=== PATIENT | female | born 1980 | race Two or more races ===

== ENCOUNTER 2018-01-04 12:49 | Emergency (ER) | payer MEDICAID ==
[~2018-01-04] VITALS: Ht 167.6 cm; Wt 70.0 kg
[2018-01-04 15:36] VITALS: BP 136/69
== END 2018-01-04 15:45 | disposition home or self-care (01) ==
LOC: ER 12:52
DX: R25.2 Cramp and spasm (principal); M79.604 Pain in right leg
CPT/HCPCS: 93971; 99284

== ENCOUNTER 2018-02-28 15:10 | Emergency (ER) | payer MEDICAID ==
[~2018-02-28] VITALS: Ht 167.6 cm; Wt 74.5 kg
[~2018-02-28 15:10] MED LIST: IBUP-1984 PO
[2018-02-28 16:02] LABS: CLARITY,URINE SLIGHTLY CLOUDY (Clear); COLOR,URINE YELLOW (Yellow); GLUCOSE, URINE NEGATIVE (Neg); KETONES,URINE NEGATIVE (Neg); LEUKOCYTE ESTERASE ,URINE NEGATIVE (Neg); NITRITES, URINE NEGATIVE (Neg); OCCULT BLOOD,URINE SMALL (Neg); PROTEIN,URINE NEGATIVE (Neg)
[2018-02-28 16:03] LABS: URINE HCG NEGATIVE (NEG)
[2018-02-28 16:15] LABS: UA COLLECTION TYPE CLN CATCH MIDSTREAM
[2018-02-28 16:22] LABS: BACTERIA,URINE 1+ /HPF (Neg); HYALINE CASTS 0-3 /LPF (NEGATIVE); RBC,URINE NONE SEEN /HPF (0-2); SQUAMOUS EPITHELIAL CELL,UR MODERATE /LPF (FEW); WBC,URINE 0-4 /HPF (0-4)
[2018-02-28 16:56] LABS: BASOPHILS % (AUTO) 0.5 % (0-1); EOSINOPHILS # (AUTO) 0.1 X10'3 (0-0.9); EOSINOPHILS % (AUTO) 1.1 % (0-6); LYMPHOCYTES # (AUTO) 1.4 X10'3 (1.1-4.8); LYMPHOCYTES % (AUTO) 16.1 % (21-51); MEAN CORPUSCULAR HEMOGLOBIN 27.8 PG (27.0-31.0); MEAN CORPUSCULAR HGB CONC 33.3 % (33.0-36.5); MEAN CORPUSCULAR VOLUME 83.7 FL (78-98); MEAN PLATELET VOLUME 8.6 FL (7.4-10.4); MONOCYTES # (AUTO) 0.6 X10'3 (0-0.9); MONOCYTES % (AUTO) 6.8 % (2-12); NEUTROPHILS # (AUTO) 6.6 X10'3 (1.8-7.7); NEUTROPHILS % (AUTO) 75.5 % (42-75); PLATELET COUNT 348 X10'3 (140-440); RED BLOOD COUNT 4.66 X10'6 (4.20-5.60); RED CELL DISTRIBUTION WIDTH 12.8 % (11.5-14.5); WHITE BLOOD COUNT 8.7 X10'3 (4.5-11.0)
[2018-02-28 17:08] LABS: ALANINE AMINOTRANSFERASE 87 U/L (12-78); ALBUMIN 3.8 G/DL (3.4-5.0); ALKALINE PHOSPHATASE 140 IU/L (46-116); AMYLASE 71 U/L (25-115); ANION GAP 10 (8-16); ASPARTATE AMINO TRANSFERASE 54 U/L (10-37); BILIRUBIN,TOTAL 0.5 MG/DL (0.1-1.0); BLOOD UREA NITROGEN 9 MG/DL (7-18); BUN/CREATININE RATIO 14.3 (6.6-38.0); CALCIUM 9.1 MG/DL (8.5-10.1); CHLORIDE 103 MMOL/L (99-107); CREATININE 0.63 MG/DL (0.40-0.90); GLUCOSE 86 MG/DL (70-104); LIPASE 86 U/L (73-393); POTASSIUM 3.3 MMOL/L (3.5-5.1); SODIUM 141 MMOL/L (135-145); TOTAL CARBON DIOXIDE 28.3 MMOL/L (24-32); TOTAL PROTEIN 7.5 G/DL (6.4-8.2); eGFR > 90 ML/MIN
[2018-02-28 17:11] LABS: PROTHROMBIN TIME 10.1 SECONDS (9.0-12.0)
[2018-02-28] MEDS ORDERED: HYDROcodone/acetaminophen 5mg/325mg tablet PO ONE (18:30)
[2018-02-28] MEDS ORDERED: POLY17PO10 PO (18:32)
[2018-02-28] MEDS ORDERED: DOCU-169 PO (18:32)
[2018-02-28 19:16] VITALS: BP 119/68
== END 2018-02-28 19:18 | disposition home or self-care (01) ==
LOC: ER 15:11
DX: K59.00 Constipation, unspecified (principal); Z79.899 Other long term (current) drug therapy
CPT/HCPCS: 36415; 76700; 80053; 81001; 81025; 82150; 83690; 85025; 85610; 99284

== ENCOUNTER 2018-03-19 00:11 | Emergency (ER) | payer MEDICAID ==
[~2018-03-19] VITALS: Ht 167.6 cm; Wt 66.2 kg
[~2018-03-19 00:11] MED LIST changes: +DOCU-169 PO; +POLY17PO10 PO
[2018-03-19 00:16] VITALS: BP 129/79
[2018-03-19] MEDS ORDERED: PRED20TA PO (00:44)
[2018-03-19] MEDS ORDERED: predniSONE 20 mg tablet PO ONE (00:45)
== END 2018-03-19 00:59 | disposition home or self-care (01) ==
LOC: ER 00:13
DX: L50.9 Urticaria, unspecified (principal); T78.40XA Allergy, unspecified, initial encounter; Z79.899 Other long term (current) drug therapy; X58.XXXA Exposure to other specified factors, initial encounter; Y93.89 Activity, other specified; Y92.89 Other specified places as the place of occurrence of the external cause; Y99.8 Other external cause status
CPT/HCPCS: 99283; J7512

== ENCOUNTER 2018-12-15 13:21 | Observation (INO) | payer MEDICAID ==
[~2018-12-15] VITALS: Ht 167.6 cm; Wt 71.0 kg
[~2018-12-15 13:21] MED LIST changes: -IBUP-1984 PO; -POLY17PO10 PO
[2018-12-15 15:24] LABS: BASOPHILS % (AUTO) 0.6 % (0-1); EOSINOPHILS # (AUTO) 0.2 X10'3 (0-0.9); EOSINOPHILS % (AUTO) 2.4 % (0-6); HEMATOCRIT 37.1 % (35.0-45.0); HEMOGLOBIN 12.4 g/dl (12.0-16.0); LYMPHOCYTES # (AUTO) 1.9 X10'3 (1.1-4.8); MEAN CORPUSCULAR HEMOGLOBIN 27.9 PG (27.0-31.0); MEAN CORPUSCULAR HGB CONC 33.3 g/dL (33.0-36.5); MEAN CORPUSCULAR VOLUME 83.7 FL (78-98); MEAN PLATELET VOLUME 8.1 FL (7.4-10.4); MONOCYTES # (AUTO) 0.7 X10'3 (0-0.9); MONOCYTES % (AUTO) 8.8 % (2-12); NEUTROPHILS # (AUTO) 5.6 X10'3 (1.8-7.7); NEUTROPHILS % (AUTO) 66.2 % (42-75); PLATELET COUNT 280 X10'3 (140-440); RED BLOOD COUNT 4.43 X10'6 (4.20-5.60); RED CELL DISTRIBUTION WIDTH 13.2 % (11.5-14.5); WHITE BLOOD COUNT 8.5 X10'3 (4.5-11.0)
--- NOTE | 2018-12-15 15:30 | NUR ---
Pt reports no CP or pressure right now.
[2018-12-15 15:32] LABS: PARTIAL THROMBOPLASTIN TIME 26 SECONDS (22-32)
[2018-12-15 15:35] LABS: ALANINE AMINOTRANSFERASE 49 U/L (12-78); ALBUMIN 3.9 G/DL (3.4-5.0); ALBUMIN/GLOBULIN RATIO 1.1 (1.1-1.5); ALKALINE PHOSPHATASE 117 IU/L (46-116); ANION GAP 9 (8-16); ASPARTATE AMINO TRANSFERASE 25 U/L (10-37); BILIRUBIN,TOTAL 0.3 MG/DL (0.1-1.0); BLOOD UREA NITROGEN 8 MG/DL (7-18); BUN/CREATININE RATIO 12.1 (6.6-38.0); CALCIUM 9.6 MG/DL (8.5-10.1); CHLORIDE 105 MMOL/L (99-107); CREATININE 0.66 MG/DL (0.40-0.90); GLUCOSE 105 MG/DL (70-104); POTASSIUM 3.6 MMOL/L (3.5-5.1); SODIUM 142 MMOL/L (135-145); TOTAL CARBON DIOXIDE 27.6 MMOL/L (24-32); TOTAL PROTEIN 7.5 G/DL (6.4-8.2); eGFR > 90 ML/MIN
[2018-12-15] MEDS ORDERED: aspirin 325mg tablet PO ONE (16:25)
[2018-12-15] MEDS ORDERED: NO HOME MEDS (16:38)
--- NOTE | 2018-12-15 16:47 | NUR ---
Hospitalist at bedside.
[2018-12-15] MEDS ORDERED: docusate sod 100mg capsule PO PRN (17:10)
[2018-12-15] MEDS ORDERED: potassium CL 10mEq/100ml bag 100 ML IV PRN ×2 (17:10)
[2018-12-15] MEDS ORDERED: potassium Cl 20 mEq SR tablet PO PRN ×2 (17:10)
[2018-12-15] MEDS ORDERED: HYDROcodone/acetaminophen 5mg/325mg tablet PO PRN (17:10)
[2018-12-15] MEDS ORDERED: magnesium 2GM in 50ml NS 50 ML IV PRN (17:10)
[2018-12-15] MEDS ORDERED: ondansetron/PF 4mg/2ml inj IV PRN (17:10)
[2018-12-15] MEDS ORDERED: acetaminophen 325mg tablet PO PRN ×2 (17:10)
[2018-12-15] MEDS ORDERED: magnesium Cl slow-release 64mg tablet PO PRN (17:10)
[2018-12-15] MEDS ORDERED: magnesium 4gm in 100ml NS 100 ML IV PRN (17:10)
[2018-12-15 17:48] LABS: D-DIMER 0.41 MG/L FEU (0-0.50)
[2018-12-15 18:17] LABS: HCG SERUM QL NEGATIVE
--- NOTE | 2018-12-15 18:54 | NUR ---
Patient in room . I have received report from CELY Kuhn RN and had the opportunity to ask questions and assume patient care.
[2018-12-15 19:35] VITALS: BP 131/86
[2018-12-15] MEDS: normal saline 1000ml 1,000 ML IV SCH (19:39)
[2018-12-15 19:59] LABS: CLARITY,URINE SLIGHTLY CLOUDY (Clear); COLOR,URINE YELLOW (Yellow); GLUCOSE, URINE NEGATIVE (Neg); KETONES,URINE >=80 mg/dl (Neg); LEUKOCYTE ESTERASE ,URINE TRACE (Neg); NITRITES, URINE NEGATIVE (Neg); OCCULT BLOOD,URINE SMALL (Neg); PH,URINE 5.5 (4.8-8.0); PROTEIN,URINE NEGATIVE (Neg); UROBILINOGEN,URINE 0.2 E.U/dL (0.2-1.0)
[2018-12-15 20:00] VITALS: BP_SYST 121; BP_SYST 131; BP_SYST 140; BP_DIAS 60; BP_DIAS 79; BP_DIAS 87
[2018-12-15 20:02] LABS: UA COLLECTION TYPE CLN CATCH MIDSTREAM
[2018-12-15 20:17] LABS: RBC,URINE 0-2 /HPF (0-2)
[2018-12-15 20:18] LABS: BACTERIA,URINE 2+ /HPF (Neg); MUCUS STRANDS MODERATE /LPF (Neg); SQUAMOUS EPITHELIAL CELL,UR MANY /LPF (FEW)
[2018-12-15] MEDS: heparin, porcine 5000 units/ml vial SQ SCH (21:02)
--- NOTE | 2018-12-15 21:22 | NUR ---
pt arrived on the floor at 1935, not in acute distress and denies any discomfort. A/O x4, VS stable and was given sandwich for laurenner Addendum: 12/15/18 at 2123 by Keysha Weston RN Amended: Links added.
[2018-12-16] VITALS: BP 110/61
[2018-12-16] MEDS: normal saline 1000ml 1,000 ML IV SCH ×4 (03:06→07:12)
[2018-12-16 06:00] LABS: ALBUMIN 3.3 G/DL (3.4-5.0); ANION GAP 11 (8-16); BLOOD UREA NITROGEN 8 MG/DL (7-18); BUN/CREATININE RATIO 14.3 (6.6-38.0); CALCIUM 9.3 MG/DL (8.5-10.1); CHLORIDE 109 MMOL/L (99-107); CREATININE 0.56 MG/DL (0.40-0.90); GLUCOSE 94 MG/DL (70-104); POTASSIUM 3.5 MMOL/L (3.5-5.1); SODIUM 143 MMOL/L (135-145); eGFR > 90 ML/MIN
--- NOTE | 2018-12-16 06:25 | NUR ---
Patient in room MP 354. I have received report from Isela Garcia RN and had the opportunity to ask questions and assume patient care.
[2018-12-16 06:30] VITALS: BP 117/64
--- NOTE | 2018-12-16 06:48 | NUR ---
Problems reprioritized. Patient report given, questions answered & plan of care reviewed with GIOVANNY Gerardo Pt has been stable and denies any discomfort and no changes in condition at this shift . Addendum: 12/16/18 at 0648 by Keysha Weston RN Amended: Links added.
[2018-12-16] MEDS: heparin, porcine 5000 units/ml vial SQ SCH (07:50)
[2018-12-16 07:56] LABS: BASOPHILS # (AUTO) 0.1 X10'3 (0-0.2); BASOPHILS % (AUTO) 0.9 % (0-1); EOSINOPHILS # (AUTO) 0.3 X10'3 (0-0.9); EOSINOPHILS % (AUTO) 4.1 % (0-6); HEMATOCRIT 31.7 % (35.0-45.0); HEMOGLOBIN 10.9 g/dl (12.0-16.0); LYMPHOCYTES # (AUTO) 2.2 X10'3 (1.1-4.8); LYMPHOCYTES % (AUTO) 32.6 % (21-51); MEAN CORPUSCULAR HEMOGLOBIN 28.6 PG (27.0-31.0); MEAN CORPUSCULAR HGB CONC 34.2 g/dL (33.0-36.5); MEAN CORPUSCULAR VOLUME 83.5 FL (78-98); MONOCYTES # (AUTO) 0.7 X10'3 (0-0.9); NEUTROPHILS # (AUTO) 3.5 X10'3 (1.8-7.7); NEUTROPHILS % (AUTO) 52.4 % (42-75); PLATELET COUNT 238 X10'3 (140-440); RED BLOOD COUNT 3.79 X10'6 (4.20-5.60); RED CELL DISTRIBUTION WIDTH 13.2 % (11.5-14.5); WHITE BLOOD COUNT 6.7 X10'3 (4.5-11.0)
[2018-12-16] MEDS ORDERED: K and/or MAG REPLACEMENT MC SCH (08:00)
--- NOTE | 2018-12-16 10:41 | NUR ---
Malnutrition consult: Per malnutrition risk screening pt unsure if she's had any wt loss. Per documented wt hx patient's current wt is stable with UBW and appropriate for age. Pt currently on regular diet documented with 25% PO intake of meal and 100% PO intake of milk x 1 meal. Pt with no decrease in muscle strength, no edema or wounds. Pt currently lacks a minimum of two criteria for malnutrition. Will continue to follow and make recommendations as appropriate. Addendum: 12/16/18 at [address] Amended: Links added.
[2018-12-16 11:00] VITALS: BP_SYST 103; BP_SYST 109; BP_SYST 114; BP_DIAS 57; BP_DIAS 66; BP_DIAS 70
[2018-12-16] MEDS ORDERED: OMEP20CA11 PO (11:34)
--- NOTE | 2018-12-16 13:30 | NUR ---
DC inst provided to pt. IV DC'd, tip intact. All belongings sent w/pt. PCT ambulated w/pt to front lobby.
== END 2018-12-16 13:30 | disposition home or self-care (01) ==
LOC: ER 13:22 → SUR 3N 19:15
PROVIDERS: ADMIT Internal Medicine; ATTEND Internal Medicine
DX: R00.2 Palpitations (principal); R94.31 Abnormal electrocardiogram [ECG] [EKG]; F43.9 Reaction to severe stress, unspecified
CPT/HCPCS: 36415; 71045; 80048; 80053; 81001; 83735; 84443; 84484; 84703; 85025; 85379; 85610; 85730; 87081; 93005; 93306; 96372; 99284; G0378; J1644; J7030

== ENCOUNTER 2019-01-16 09:15 | Inpatient (IN) | payer MEDICAID ==
[~2019-01-16] VITALS: Ht 167.6 cm; Wt 74.0 kg
[2019-01-16] VITALS (19 sets, daily range): BP systolic 100–130; BP diastolic 61–84
[~2019-01-16 09:15] MED LIST changes: -DOCU-169 PO; +NO HOME MEDS; +OMEP20CA11 PO
[2019-01-16 11:25] LABS: BASOPHILS # (AUTO) 0.1 X10'3 (0-0.2); BASOPHILS % (AUTO) 0.7 % (0-1); EOSINOPHILS # (AUTO) 0.2 X10'3 (0-0.9); EOSINOPHILS % (AUTO) 2.7 % (0-6); HEMATOCRIT 35.6 % (35.0-45.0); LYMPHOCYTES # (AUTO) 1.6 X10'3 (1.1-4.8); LYMPHOCYTES % (AUTO) 20.7 % (21-51); MEAN CORPUSCULAR HGB CONC 33.7 g/dL (33.0-36.5); MONOCYTES # (AUTO) 0.6 X10'3 (0-0.9); MONOCYTES % (AUTO) 7.7 % (2-12); NEUTROPHILS # (AUTO) 5.2 X10'3 (1.8-7.7); NEUTROPHILS % (AUTO) 68.2 % (42-75); PLATELET COUNT 307 X10'3 (140-440); RED BLOOD COUNT 4.29 X10'6 (4.20-5.60); RED CELL DISTRIBUTION WIDTH 13.4 % (11.5-14.5); WHITE BLOOD COUNT 7.6 X10'3 (4.5-11.0)
[2019-01-16 11:36] LABS: ALANINE AMINOTRANSFERASE 33 U/L (12-78); ALBUMIN 3.6 G/DL (3.4-5.0); ALBUMIN/GLOBULIN RATIO 0.9 (1.1-1.5); ALKALINE PHOSPHATASE 118 IU/L (46-116); ANION GAP 7 (8-16); ASPARTATE AMINO TRANSFERASE 21 U/L (10-37); BILIRUBIN,TOTAL 0.3 MG/DL (0.1-1.0); BLOOD UREA NITROGEN 11 MG/DL (7-18); CALCIUM 8.8 MG/DL (8.5-10.1); CHLORIDE 108 MMOL/L (99-107); CREATININE 0.61 MG/DL (0.40-0.90); GLUCOSE 91 MG/DL (70-104); POTASSIUM 3.7 MMOL/L (3.5-5.1); SODIUM 142 MMOL/L (135-145); TOTAL CARBON DIOXIDE 27.5 MMOL/L (24-32); TOTAL PROTEIN 7.4 G/DL (6.4-8.2); eGFR > 90 ML/MIN
[2019-01-16] MEDS ORDERED: ceFAZolin inj. 2,000 MG in dextrose 5%-water 50ml 50 ML IV ONE (12:10)
[2019-01-16] MEDS ORDERED: OMEP20CA11 PO (12:13)
--- NOTE | 2019-01-16 12:31 | NUR ---
report called to recovery
[2019-01-16 12:41] LABS: CLARITY,URINE CLOUDY (Clear); COLOR,URINE YELLOW (Yellow); GLUCOSE, URINE NEGATIVE (Neg); KETONES,URINE NEGATIVE (Neg); LEUKOCYTE ESTERASE ,URINE NEGATIVE (Neg); NITRITES, URINE NEGATIVE (Neg); OCCULT BLOOD,URINE LARGE (Neg); PROTEIN,URINE NEGATIVE (Neg); URINE HCG NEGATIVE (NEG); UROBILINOGEN,URINE 0.2 E.U/dL (0.2-1.0)
[2019-01-16 12:44] LABS: UA COLLECTION TYPE CLN CATCH MIDSTREAM
[2019-01-16 12:46] LABS: BACTERIA,URINE 1+ /HPF (Neg); MUCUS STRANDS MODERATE /LPF (Neg); RBC,URINE TNTC /HPF (0-2); SQUAMOUS EPITHELIAL CELL,UR MODERATE /LPF (FEW)
[2019-01-16 12:47] LABS: WBC,URINE 0-4 /HPF (0-4)
[2019-01-16] MEDS ORDERED: ringers solution, lacted 1,000 ML IV SCH (13:01)
[2019-01-16] MEDS ORDERED: meperidine/PF 25mg/ml syringe IV PRN ×2 (13:05)
[2019-01-16] MEDS ORDERED: ondansetron/PF 4mg/2ml inj IV PRN (13:05)
[2019-01-16] MEDS ORDERED: morphine 4 MG/ML inj SYRINge IV PRN ×2 (13:05)
[2019-01-16] MEDS ORDERED: proCHLORperazine 10 MG/2 ml inj IV PRN (13:05)
[2019-01-16] MEDS ORDERED: LIDOcaine 1% 30ml preserv. free vial ONE (13:25)
[2019-01-16] MEDS ORDERED: ketorolac trometh. 30mg/ml inj. ONE (13:25)
[2019-01-16] MEDS ORDERED: ROPIVAcaine 0.5% (5mg/ml) 30ml vial ONE (13:25)
[2019-01-16] MEDS ORDERED: BUPIVAcaine/PF 2.5 mg/ml (0.25%) 30ml vial ONE (13:26)
[2019-01-16] MEDS ORDERED: sevoflurane 250ml liquid IH ONE (13:47)
[2019-01-16] MEDS ORDERED: ondansetron/PF 4mg/2ml inj ONE (13:47)
[2019-01-16] MEDS ORDERED: glycopyrrolate 0.2mg/ml inj ONE (13:47)
[2019-01-16] MEDS ORDERED: midazolam 2 mg/2 ml injection ONE (13:54)
[2019-01-16] MEDS ORDERED: fentaNYL/PF 50MCG/1 ML 2ML syringe ONE (13:54)
[2019-01-16] MEDS ORDERED: acetaminophen 1,000mg/100ml IV 100 ML IV ONE (14:12)
[2019-01-16] MEDS ORDERED: rocuronium 10mg/ml inj IV ONE (14:13)
[2019-01-16] MEDS ORDERED: dexamethasone sod phosphate 4mg/ml inj. ONE (14:13)
[2019-01-16] MEDS ORDERED: propofol inj 20 ML IV ONE (14:13)
[2019-01-16] MEDS ORDERED: oxyCODONE/APAP 5-325mg tablet PO PRN ×3 (15:10→16:00)
[2019-01-16] MEDS ORDERED: PER5325T PO (15:13)
[2019-01-16] MEDS: meperidine/PF 25mg/ml syringe IV PRN ×4 (15:18→17:46)
--- NOTE | 2019-01-16 15:20 | NUR ---
Received from OR via BED , accompanied by Anesthesiologist DR WILSON and report given by Anesthesiolgist. PATIENT WAKING UP, C/O PAIN MEDS GIVEN, V/S WNL, NEUROVASCULAR CHECKS INTACT, 20G PIV RUE, SCD ON, BANDAIDS TO LAP SIGHTS OF ABDOMEN CDI.
--- NOTE | 2019-01-16 16:44 | NUR ---
WAITING FOR ROOM ASSIGNMENT, PATIENT DOING WELL, PAIN CONTROLLED AT THIS TIME
--- NOTE | 2019-01-16 18:00 | NUR ---
PATIENT A&OX4, DENIES PAIN, V/S WNL, NEUROVASCULAR CHECKS INTACT, 20G PIV RUE, SCD ON, BANDAIDS TO LAP SIGHTS OF ABDOMEN CDI. PATIENT TAKEN TO SURGICAL WITH ALL BELONGINGS AND HOOKED UP TO MONITORS IN ROOM AND REPORT GIVEN TO CARE INFORMATION ASSOCIATE WHO HAS TAKEN OVER PATIENT CARE
[2019-01-16] MEDS: oxyCODONE/APAP 5-325mg tablet PO PRN (19:00)
[2019-01-16] MEDS: ringers solution, lacted 1,000 ML IV SCH (19:01)
[2019-01-16] MEDS: HYDROmorphone 1 mg/ml syringe IV PRN (21:45)
[2019-01-17] VITALS: BP 122/76
[2019-01-17] MEDS: oxyCODONE/APAP 5-325mg tablet PO PRN ×3 (01:24→13:40)
[2019-01-17] MEDS: ringers solution, lacted 1,000 ML IV SCH ×2 (01:30→07:54)
[2019-01-17] MEDS: ondansetron/PF 4mg/2ml inj IV PRN ×2 (01:58→11:37)
--- NOTE | 2019-01-17 06:25 | NUR ---
Patient in room MP 360. I have received report from Clay RN & Gumaro RN and had the opportunity to ask questions and assume patient care.
[2019-01-17 06:30] VITALS: BP 114/70
--- NOTE | 2019-01-17 06:38 | NUR ---
Problems reprioritized. Patient report given, questions answered & plan of care reviewed with Humaira.
--- NOTE | 2019-01-17 07:00 | NUR ---
Problems reprioritized. Patient report given, questions answered & plan of care reviewed with NAYA. Addendum: 01/17/19 at 0700 by Kendall Márquez RN Amended: Links added.
[2019-01-17] MEDS ORDERED: pantoprazole 40mg Tablet.DR PO SCH (07:30)
[2019-01-17] MEDS: HYDROmorphone 1 mg/ml syringe IV PRN ×2 (07:47→11:33)
[2019-01-17 11:30] VITALS: BP 110/66
[2019-01-17] MEDS ORDERED: ONDA4TAB12 PO (13:46)
--- NOTE | 2019-01-17 15:10 | NUR ---
DC inst provided to pt. Had student nurse interpret & provided written inst in irish. IV DC'd, tip intact. All belongings sent w/pt. Addendum: 01/17/19 at 1515 by Humaira Danielle RN WC to yane lee.
== END 2019-01-17 15:08 | disposition home or self-care (01) | DRG 227 ==
LOC: ER 09:16 → OBSVTOIN 12:20 → ED HOLD 12:20 → SUR 3N 18:10
PROVIDERS: ADMIT Surgery; ATTEND Surgery
PROC: 8E0W4CZ Robotic Assisted Procedure of Trunk Region, Percutaneous Endoscopic Approach (ICD-10-PCS; 2019-01-16)
PROC: 3E0T3BZ Introduction of Anesthetic Agent into Peripheral Nerves and Plexi, Percutaneous Approach (ICD-10-PCS; 2019-01-16)
PROC: 0WUF4JZ Supplement Abdominal Wall with Synthetic Substitute, Percutaneous Endoscopic Approach (ICD-10-PCS; principal; 2019-01-16 13:47)
DX: K43.6 Other and unspecified ventral hernia with obstruction, without gangrene (principal); Z79.899 Other long term (current) drug therapy; Z98.891 History of uterine scar from previous surgery
CPT/HCPCS: 49652; S2900; 36415; 71045; 80053; 81001; 81025; 85025; 85610; 86885; 86900; 86901; 87081; 93005; 99285; A4215; A4618; C1781; G0378; J0131; J0690; J1100; J1170; J1885; J2001; J2175; J2250; J2405; J2704; J2795; J3010; J3490; J7060; J7120

== ENCOUNTER 2019-02-06 16:30 | Emergency (ER) | payer MEDICAID ==
[~2019-02-06] VITALS: Ht 167.6 cm; Wt 72.0 kg
[~2019-02-06 16:30] MED LIST changes: -NO HOME MEDS; +ONDA4TAB12 PO; +PER5325T PO
[2019-02-06 16:39] VITALS: BP 112/74
[2019-02-06 17:02] LABS: BASOPHILS # (AUTO) 0.1 X10'3 (0-0.2); BASOPHILS % (AUTO) 0.8 % (0-1); EOSINOPHILS # (AUTO) 0.5 X10'3 (0-0.9); EOSINOPHILS % (AUTO) 5.1 % (0-6); HEMATOCRIT 36.9 % (35.0-45.0); HEMOGLOBIN 12.5 g/dl (12.0-16.0); LYMPHOCYTES # (AUTO) 2.7 X10'3 (1.1-4.8); LYMPHOCYTES % (AUTO) 25.2 % (21-51); MEAN CORPUSCULAR HGB CONC 33.8 g/dL (33.0-36.5); MEAN CORPUSCULAR VOLUME 82.9 FL (78-98); MEAN PLATELET VOLUME 7.8 FL (7.4-10.4); MONOCYTES # (AUTO) 0.7 X10'3 (0-0.9); NEUTROPHILS # (AUTO) 6.6 X10'3 (1.8-7.7); NEUTROPHILS % (AUTO) 61.9 % (42-75); PLATELET COUNT 366 X10'3 (140-440); RED BLOOD COUNT 4.45 X10'6 (4.20-5.60); RED CELL DISTRIBUTION WIDTH 13.3 % (11.5-14.5); WHITE BLOOD COUNT 10.7 X10'3 (4.5-11.0)
[2019-02-06 17:06] LABS: CLARITY,URINE SLIGHTLY CLOUDY (Clear); COLOR,URINE YELLOW (Yellow); GLUCOSE, URINE NEGATIVE (Neg); KETONES,URINE NEGATIVE (Neg); LEUKOCYTE ESTERASE ,URINE NEGATIVE (Neg); NITRITES, URINE NEGATIVE (Neg); OCCULT BLOOD,URINE MODERATE (Neg); PH,URINE 5.5 (4.8-8.0); PROTEIN,URINE NEGATIVE (Neg); UA COLLECTION TYPE NON-SPECIFIED; UROBILINOGEN,URINE 0.2 E.U/dL (0.2-1.0)
[2019-02-06 17:09] LABS: URINE HCG NEGATIVE (NEG)
[2019-02-06 17:14] LABS: MUCUS STRANDS MANY /LPF (Neg); SQUAMOUS EPITHELIAL CELL,UR MANY /LPF (FEW)
[2019-02-06 17:15] LABS: BACTERIA,URINE FEW /HPF (Neg); WBC,URINE 0-4 /HPF (0-4)
[2019-02-06 17:19] LABS: ALANINE AMINOTRANSFERASE 20 U/L (12-78); ALBUMIN 3.9 G/DL (3.4-5.0); ALBUMIN/GLOBULIN RATIO 0.9 (1.1-1.5); ALKALINE PHOSPHATASE 142 IU/L (46-116); ANION GAP 10 (8-16); ASPARTATE AMINO TRANSFERASE 18 U/L (10-37); BILIRUBIN,TOTAL 0.2 MG/DL (0.1-1.0); BLOOD UREA NITROGEN 11 MG/DL (7-18); BUN/CREATININE RATIO 16.7 (6.6-38.0); CALCIUM 8.9 MG/DL (8.5-10.1); CHLORIDE 105 MMOL/L (99-107); CREATININE 0.66 MG/DL (0.40-0.90); GLUCOSE 91 MG/DL (70-104); LIPASE 128 U/L (73-393); POTASSIUM 3.7 MMOL/L (3.5-5.1); SODIUM 139 MMOL/L (135-145); TOTAL CARBON DIOXIDE 24.5 MMOL/L (24-32); TOTAL PROTEIN 8.1 G/DL (6.4-8.2); eGFR > 90 ML/MIN
[2019-02-06] MEDS ORDERED: acetaminophen w/codeine (30MG) #3 tablet PO ONE (18:30)
== END 2019-02-06 18:55 | disposition home or self-care (01) ==
LOC: ER 16:30
DX: R10.11 Right upper quadrant pain (principal); F10.99 Alcohol use, unspecified with unspecified alcohol-induced disorder; Z98.890 Other specified postprocedural states; Z79.899 Other long term (current) drug therapy; Y90.9 Presence of alcohol in blood, level not specified
CPT/HCPCS: 36415; 80053; 81001; 81025; 83690; 85025; 99283; 99284

== ENCOUNTER 2019-02-07 07:47 | Emergency (ER) | payer MEDICAID ==
[~2019-02-07] VITALS: Ht 167.6 cm; Wt 75.0 kg
[2019-02-07] MEDS ORDERED: ondansetron/PF 4mg/2ml inj IV ONE (08:50)
[2019-02-07] MEDS ORDERED: normal saline 1000ML IV soln IVB ONE (08:50)
[2019-02-07 09:05] LABS: BASOPHILS % (AUTO) 0.5 % (0-1); EOSINOPHILS # (AUTO) 0.3 X10'3 (0-0.9); EOSINOPHILS % (AUTO) 3.6 % (0-6); HEMATOCRIT 35.8 % (35.0-45.0); HEMOGLOBIN 12.1 g/dl (12.0-16.0); LYMPHOCYTES # (AUTO) 1.7 X10'3 (1.1-4.8); MEAN CORPUSCULAR HGB CONC 33.8 g/dL (33.0-36.5); MEAN CORPUSCULAR VOLUME 82.7 FL (78-98); MONOCYTES # (AUTO) 0.6 X10'3 (0-0.9); MONOCYTES % (AUTO) 6.8 % (2-12); NEUTROPHILS # (AUTO) 6.2 X10'3 (1.8-7.7); NEUTROPHILS % (AUTO) 70.1 % (42-75); PLATELET COUNT 318 X10'3 (140-440); RED BLOOD COUNT 4.33 X10'6 (4.20-5.60); RED CELL DISTRIBUTION WIDTH 13.5 % (11.5-14.5); WHITE BLOOD COUNT 8.8 X10'3 (4.5-11.0)
[2019-02-07 09:15] LABS: ALANINE AMINOTRANSFERASE 18 U/L (12-78); ALBUMIN 3.6 G/DL (3.4-5.0); ALBUMIN/GLOBULIN RATIO 0.9 (1.1-1.5); ALKALINE PHOSPHATASE 128 IU/L (46-116); ANION GAP 9 (8-16); ASPARTATE AMINO TRANSFERASE 16 U/L (10-37); BILIRUBIN,TOTAL 0.3 MG/DL (0.1-1.0); BLOOD UREA NITROGEN 11 MG/DL (7-18); BUN/CREATININE RATIO 17.5 (6.6-38.0); CALCIUM 8.8 MG/DL (8.5-10.1); CHLORIDE 106 MMOL/L (99-107); CREATININE 0.63 MG/DL (0.40-0.90); GLUCOSE 93 MG/DL (70-104); LIPASE 88 U/L (73-393); SODIUM 139 MMOL/L (135-145); TOTAL CARBON DIOXIDE 24.2 MMOL/L (24-32); TOTAL PROTEIN 7.7 G/DL (6.4-8.2); eGFR > 90 ML/MIN
[2019-02-07 10:39] VITALS: BP 106/51
== END 2019-02-07 10:42 | disposition home or self-care (01) ==
LOC: ER 07:48
DX: K80.50 Calculus of bile duct without cholangitis or cholecystitis without obstruction (principal); F10.99 Alcohol use, unspecified with unspecified alcohol-induced disorder; Z98.890 Other specified postprocedural states; Z79.899 Other long term (current) drug therapy; Y90.9 Presence of alcohol in blood, level not specified
CPT/HCPCS: 36415; 76700; 80053; 83690; 85025; 96374; 99284; J2405; J7030

== ENCOUNTER 2019-02-09 16:06 | Emergency (ER) | payer MEDICAID ==
[~2019-02-09] VITALS: Ht 167.6 cm; Wt 71.0 kg
[2019-02-09] MEDS ORDERED: ondansetron 4mg rapidly disintigrating tab PO ONE (17:45)
[2019-02-09] MEDS ORDERED: morphine 4 MG/ML inj SYRINge IM ONE (17:45)
[2019-02-09 18:23] LABS: BASOPHILS # (AUTO) 0.1 X10'3 (0-0.2); BASOPHILS % (AUTO) 0.8 % (0-1); EOSINOPHILS # (AUTO) 0.1 X10'3 (0-0.9); HEMATOCRIT 37.4 % (35.0-45.0); HEMOGLOBIN 12.4 g/dl (12.0-16.0); LYMPHOCYTES # (AUTO) 1.8 X10'3 (1.1-4.8); LYMPHOCYTES % (AUTO) 16.2 % (21-51); MEAN CORPUSCULAR HEMOGLOBIN 27.4 PG (27.0-31.0); MEAN CORPUSCULAR HGB CONC 33.2 g/dL (33.0-36.5); MEAN CORPUSCULAR VOLUME 82.6 FL (78-98); MONOCYTES # (AUTO) 0.4 X10'3 (0-0.9); NEUTROPHILS # (AUTO) 8.8 X10'3 (1.8-7.7); PLATELET COUNT 333 X10'3 (140-440); RED BLOOD COUNT 4.53 X10'6 (4.20-5.60); RED CELL DISTRIBUTION WIDTH 13.5 % (11.5-14.5); WHITE BLOOD COUNT 11.3 X10'3 (4.5-11.0)
[2019-02-09 18:50] LABS: ALANINE AMINOTRANSFERASE 20 U/L (12-78); ALBUMIN 3.7 G/DL (3.4-5.0); ALBUMIN/GLOBULIN RATIO 0.9 (1.1-1.5); ALKALINE PHOSPHATASE 135 IU/L (46-116); ANION GAP 10 (8-16); ASPARTATE AMINO TRANSFERASE 21 U/L (10-37); BILIRUBIN,TOTAL 0.3 MG/DL (0.1-1.0); BLOOD UREA NITROGEN 9 MG/DL (7-18); BUN/CREATININE RATIO 14.1 (6.6-38.0); CALCIUM 9.1 MG/DL (8.5-10.1); CHLORIDE 105 MMOL/L (99-107); CREATININE 0.64 MG/DL (0.40-0.90); GLUCOSE 91 MG/DL (70-104); LIPASE 97 U/L (73-393); POTASSIUM 4.2 MMOL/L (3.5-5.1); SODIUM 139 MMOL/L (135-145); TOTAL CARBON DIOXIDE 23.8 MMOL/L (24-32); eGFR > 90 ML/MIN
[2019-02-09] MEDS ORDERED: HYDR-3965 PO (18:55)
[2019-02-09] MEDS ORDERED: ONDA4TAB6 PO (18:55)
[2019-02-09 19:03] VITALS: BP 97/66
== END 2019-02-09 19:10 | disposition home or self-care (01) ==
LOC: ER 16:06
DX: K80.50 Calculus of bile duct without cholangitis or cholecystitis without obstruction (principal); R10.11 Right upper quadrant pain; Z98.890 Other specified postprocedural states; Z79.899 Other long term (current) drug therapy
CPT/HCPCS: 36415; 80053; 83690; 85025; 96372; 99283; J2270

== ENCOUNTER 2019-02-27 07:49 | Inpatient (IN) | payer MEDICAID ==
[2019-02-27] VITALS (17 sets, daily range): BP systolic 111–120; BP diastolic 58–75
[~2019-02-27] VITALS: Ht 167.6 cm; Wt 71.3 kg
[~2019-02-27 07:49] MED LIST changes: +ONDA4TAB6 PO
[2019-02-27] MEDS ORDERED: ondansetron/PF 4mg/2ml inj IV ONE (08:05)
[2019-02-27] MEDS ORDERED: ringers solution, lacted 1,000 ML IV SCH ×3 (08:05→12:23)
[2019-02-27] MEDS ORDERED: morphine 4 MG/ML inj SYRINge IV PRN ×3 (08:05→12:25)
[2019-02-27] MEDS ORDERED: ceFAZolin inj. 2,000 MG in dextrose 5%-water 50ml 50 ML IV ONE (08:15)
[2019-02-27 08:26] LABS: BASOPHILS # (AUTO) 0.1 X10'3 (0-0.2); BASOPHILS % (AUTO) 0.7 % (0-1); EOSINOPHILS # (AUTO) 0.2 X10'3 (0-0.9); EOSINOPHILS % (AUTO) 2.5 % (0-6); HEMATOCRIT 37.1 % (35.0-45.0); HEMOGLOBIN 12.3 g/dl (12.0-16.0); LYMPHOCYTES # (AUTO) 2.3 X10'3 (1.1-4.8); LYMPHOCYTES % (AUTO) 26.4 % (21-51); MEAN CORPUSCULAR HEMOGLOBIN 27.8 PG (27.0-31.0); MEAN CORPUSCULAR HGB CONC 33.2 g/dL (33.0-36.5); MEAN CORPUSCULAR VOLUME 83.7 FL (78-98); MEAN PLATELET VOLUME 8.1 FL (7.4-10.4); MONOCYTES # (AUTO) 0.7 X10'3 (0-0.9); MONOCYTES % (AUTO) 7.6 % (2-12); NEUTROPHILS # (AUTO) 5.4 X10'3 (1.8-7.7); NEUTROPHILS % (AUTO) 62.8 % (42-75); PLATELET COUNT 282 X10'3 (140-440); RED BLOOD COUNT 4.44 X10'6 (4.20-5.60); RED CELL DISTRIBUTION WIDTH 13.4 % (11.5-14.5); WHITE BLOOD COUNT 8.6 X10'3 (4.5-11.0)
[2019-02-27] MEDS ORDERED: cefazolin/dext.iso 2gm/100ml 100 ML IV ONE (08:30)
[2019-02-27 08:32] LABS: URINE HCG NEGATIVE (NEG)
[2019-02-27 08:35] LABS: CLARITY,URINE SLIGHTLY CLOUDY (Clear); COLOR,URINE YELLOW (Yellow); GLUCOSE, URINE NEGATIVE (Neg); KETONES,URINE 15 mg/dl (Neg); LEUKOCYTE ESTERASE ,URINE NEGATIVE (Neg); NITRITES, URINE NEGATIVE (Neg); OCCULT BLOOD,URINE MODERATE (Neg); PH,URINE 5.5 (4.8-8.0); PROTEIN,URINE NEGATIVE (Neg); UA COLLECTION TYPE CLN CATCH MIDSTREAM; UROBILINOGEN,URINE 0.2 E.U/dL (0.2-1.0)
[2019-02-27 08:41] LABS: MUCUS STRANDS FEW /LPF (Neg); SQUAMOUS EPITHELIAL CELL,UR MANY /LPF (FEW)
[2019-02-27 08:44] LABS: ALANINE AMINOTRANSFERASE 23 U/L (12-78); ALBUMIN 3.8 G/DL (3.4-5.0); ALKALINE PHOSPHATASE 144 IU/L (46-116); ANION GAP 9 (8-16); ASPARTATE AMINO TRANSFERASE 24 U/L (10-37); BILIRUBIN,TOTAL 0.4 MG/DL (0.1-1.0); BLOOD UREA NITROGEN 11 MG/DL (7-18); BUN/CREATININE RATIO 17.2 (6.6-38.0); CALCIUM 8.9 MG/DL (8.5-10.1); CHLORIDE 105 MMOL/L (99-107); CREATININE 0.64 MG/DL (0.40-0.90); GLUCOSE 95 MG/DL (70-104); LIPASE 106 U/L (73-393); POTASSIUM 3.3 MMOL/L (3.5-5.1); SODIUM 140 MMOL/L (135-145); TOTAL CARBON DIOXIDE 26.3 MMOL/L (24-32); TOTAL PROTEIN 7.5 G/DL (6.4-8.2); eGFR > 90 ML/MIN
[2019-02-27 08:45] LABS: TRANSITIONAL EPI CELLS,URINE FEW /HPF
[2019-02-27 08:46] LABS: BACTERIA,URINE 1+ /HPF (Neg)
[2019-02-27] MEDS ORDERED: INDOCYANINE GREEN 25 MG VIAL IV ONE (09:00)
[2019-02-27] MEDS ORDERED: LIDOcaine 1% 30ml preserv. free vial ONE (11:40)
[2019-02-27] MEDS ORDERED: BUPIVAcaine/PF 2.5 mg/ml (0.25%) 30ml vial ONE (11:41)
[2019-02-27] MEDS ORDERED: sevoflurane 250ml liquid IH ONE (11:48)
[2019-02-27] MEDS ORDERED: dexamethasone sod phosphate 10mg/ml inj ONE (11:48)
[2019-02-27] MEDS ORDERED: neostigmine methylsulfate 1 MG/ML 10ml vial ONE (11:48)
[2019-02-27] MEDS ORDERED: glycopyrrolate 0.2mg/ml inj ONE (11:48)
[2019-02-27] MEDS ORDERED: midazolam 2 mg/2 ml injection ONE (11:59)
[2019-02-27] MEDS ORDERED: fentaNYL/PF 50MCG/1 ML 2ML syringe ONE (11:59)
[2019-02-27] MEDS ORDERED: propofol inj 20 ML IV ONE (12:01)
[2019-02-27] MEDS ORDERED: LIDOcaine 2% (20mg/ml) 5ml vial ONE (12:01)
[2019-02-27] MEDS ORDERED: rocuronium 10mg/ml inj IV ONE (12:02)
[2019-02-27] MEDS ORDERED: ondansetron/PF 4mg/2ml inj ONE (12:09)
[2019-02-27] MEDS ORDERED: proCHLORperazine 10 MG/2 ml inj IV PRN (12:25)
[2019-02-27] MEDS ORDERED: ondansetron/PF 4mg/2ml inj IV PRN (12:25)
[2019-02-27] MEDS ORDERED: meperidine/PF 25mg/ml syringe IV PRN ×2 (12:25)
[2019-02-27] MEDS ORDERED: ketorolac trometh. 30mg/ml inj. ONE (13:09)
--- NOTE | 2019-02-27 13:22 | NUR ---
Received from OR via [facility], accompanied by Anesthesiologist DR ARNOLD and report given by Anesthesiologist. PT DROWSY, DENIES PAIN, ABDOMEN W/4LAP SITES W/BANDAIDS CDI. Addendum: 02/27/19 at 1344 by Luli Vazquez RN Amended: Links added.
[2019-02-27] MEDS ORDERED: oxyCODONE/APAP 5-325mg tablet PO PRN (13:25)
[2019-02-27] MEDS: meperidine/PF 25mg/ml syringe IV PRN ×3 (13:28→14:15)
[2019-02-27] MEDS ORDERED: acetaminophen 1,000mg/100ml IV 100 ML IV ONE (13:30)
--- NOTE | 2019-02-27 15:15 | NUR ---
PT COMFORTABLE, AWAITING RIDE HOME. Addendum: 02/27/19 at 1515 by Luli Vazquez RN Amended: Links added.
--- NOTE | 2019-02-27 16:12 | NUR ---
NAUSEA SUBSIDED, PTS FAMILY ARRIVED AND WAS ABLE TO READ D/C INSTRUCTIONS TO PT AND NURSE ACCURATELY, PT VERBALIZED UNDERSTANDING OF D/C INSTRUCTIONS. PT D/CD TO HOME VIA W/C TO PRIVATE VEHICLE W/O INCIDENT. Addendum: 02/27/19 at 1629 by Luli Vazquez RN Amended: Links added.
[2019-02-28] MEDS ORDERED: ringers solution, lacted 1,000 ML IV SCH (05:00)
[2019-02-28] MEDS ORDERED: famotidine 20mg tablet PO ONE (05:30)
== END 2019-02-27 17:43 | disposition home or self-care (01) | DRG 263 ==
LOC: ER 07:50 → ED HOLD 08:11
PROVIDERS: ADMIT Surgery; ATTEND Surgery
PROC: 0FT44ZZ Resection of Gallbladder, Percutaneous Endoscopic Approach (ICD-10-PCS; principal; 2019-02-27 11:48)
DX: K80.66 Calculus of gallbladder and bile duct with acute and chronic cholecystitis without obstruction (principal); Z79.899 Other long term (current) drug therapy
CPT/HCPCS: 36415; 71045; 80053; 81001; 81025; 83690; 85025; 85610; 93005; 99285; A4215; A4618; A7000; G0378; J0131; J0690; J1100; J1885; J2001; J2175; J2250; J2270; J2405; J2704; J2710; J3010; J3490; J7060; J7120

== ENCOUNTER 2019-11-11 17:14 | Emergency (ER) | payer MEDICAID ==
[~2019-11-11] VITALS: Ht 167.6 cm; Wt 81.8 kg
[~2019-11-11 17:14] MED LIST changes: -OMEP20CA11 PO; +OMEP20CA15 PO
[2019-11-11 17:28] VITALS: BP 119/74
[2019-11-11 17:54] LABS: CLARITY,URINE CLOUDY (Clear); COLOR,URINE YELLOW (Yellow); GLUCOSE, URINE NEGATIVE (Neg); KETONES,URINE NEGATIVE (Neg); LEUKOCYTE ESTERASE ,URINE SMALL (Neg); NITRITES, URINE NEGATIVE (Neg); OCCULT BLOOD,URINE LARGE (Neg); PROTEIN,URINE 30 mg/dl (Neg); UA COLLECTION TYPE CLN CATCH MIDSTREAM; UROBILINOGEN,URINE 0.2 E.U/dL (0.2-1.0)
[2019-11-11] MEDS ORDERED: ketorolac trometh. 30mg/ml inj. IM ONE (17:55)
[2019-11-11] MEDS ORDERED: phenazopyridine 100mg tablet PO ONE (17:55)
[2019-11-11] MEDS ORDERED: CEPH-572 PO (17:58)
[2019-11-11 17:59] LABS: BACTERIA,URINE 1+ /HPF (Neg); MUCUS STRANDS FEW /LPF (Neg); RBC,URINE 20-50 /HPF (0-2); SQUAMOUS EPITHELIAL CELL,UR FEW /LPF (FEW); WBC CLUMPS,URINE MODERATE /HPF (NEGATIVE); WBC,URINE TNTC /HPF (0-4)
[2019-11-11] MEDS ORDERED: PHEN-716 PO (17:59)
[2019-11-11] MEDS ORDERED: cephalexin 250mg capsule PO ONE (18:05)
== END 2019-11-11 18:24 | disposition home or self-care (01) ==
LOC: ER 17:15
DX: N39.0 Urinary tract infection, site not specified (principal); M54.5 Low back pain; Z90.49 Acquired absence of other specified parts of digestive tract; Z98.890 Other specified postprocedural states; Z79.899 Other long term (current) drug therapy
CPT/HCPCS: 81001; 87088; 96372; 99283; J1885; 87077; 87186

== ENCOUNTER 2020-02-04 16:04 | Emergency (ER) | payer MEDICAID ==
[~2020-02-04] VITALS: Ht 167.6 cm; Wt 78.0 kg
[~2020-02-04 16:04] MED LIST changes: +PHEN-716 PO
[2020-02-04] MEDS ORDERED: ondansetron 4mg rapidly disintigrating tab PO ONE (16:40)
[2020-02-04] MEDS ORDERED: ibuprofen tablet 400 MG TABLET PO ONE (16:40)
[2020-02-04] MEDS ORDERED: acetaminophen 325mg tablet PO ONE (16:40)
[2020-02-04 16:43] LABS: BASOPHILS # (AUTO) 0.1 X10'3 (0-0.2); BASOPHILS % (AUTO) 0.5 % (0-1); EOSINOPHILS # (AUTO) 0.2 X10'3 (0-0.9); EOSINOPHILS % (AUTO) 1.8 % (0-6); HEMATOCRIT 36.8 % (35.0-45.0); HEMOGLOBIN 12.4 g/dl (12.0-16.0); LYMPHOCYTES # (AUTO) 2.7 X10'3 (1.1-4.8); LYMPHOCYTES % (AUTO) 25.7 % (21-51); MEAN CORPUSCULAR HEMOGLOBIN 28.2 PG (27.0-31.0); MEAN CORPUSCULAR HGB CONC 33.6 g/dL (33.0-36.5); MEAN CORPUSCULAR VOLUME 83.9 FL (78-98); MEAN PLATELET VOLUME 8.2 FL (7.4-10.4); MONOCYTES # (AUTO) 0.8 X10'3 (0-0.9); MONOCYTES % (AUTO) 7.1 % (2-12); NEUTROPHILS # (AUTO) 6.9 X10'3 (1.8-7.7); NEUTROPHILS % (AUTO) 64.9 % (42-75); PLATELET COUNT 286 X10'3 (140-440); RED BLOOD COUNT 4.39 X10'6 (4.20-5.60); RED CELL DISTRIBUTION WIDTH 13.5 % (11.5-14.5); WHITE BLOOD COUNT 10.6 X10'3 (4.5-11.0)
[2020-02-04 17:04] LABS: ALANINE AMINOTRANSFERASE 23 U/L (12-78); ALBUMIN/GLOBULIN RATIO 1.1 (1.1-1.5); ALKALINE PHOSPHATASE 114 IU/L (46-116); ANION GAP 11 (8-16); ASPARTATE AMINO TRANSFERASE 17 U/L (10-37); BILIRUBIN,TOTAL 0.4 MG/DL (0.1-1.0); BLOOD UREA NITROGEN 12 MG/DL (7-18); BUN/CREATININE RATIO 18.5 (6.6-38.0); CALCIUM 9.1 MG/DL (8.5-10.1); CHLORIDE 104 MMOL/L (99-107); CREATININE 0.65 MG/DL (0.40-0.90); GLUCOSE 114 MG/DL (70-104); POTASSIUM 3.5 MMOL/L (3.5-5.1); SODIUM 140 MMOL/L (135-145); TOTAL CARBON DIOXIDE 25.1 MMOL/L (24-32); TOTAL PROTEIN 7.7 G/DL (6.4-8.2); eGFR > 90 ML/MIN
[2020-02-04 17:13] LABS: LIPASE 103 U/L (73-393)
[2020-02-04 18:07] LABS: COLOR,URINE YELLOW (Yellow); GLUCOSE, URINE NEGATIVE (Neg); KETONES,URINE NEGATIVE (Neg); LEUKOCYTE ESTERASE ,URINE NEGATIVE (Neg); NITRITES, URINE NEGATIVE (Neg); OCCULT BLOOD,URINE TRACE-INTACT (Neg); PH,URINE 6.5 (4.8-8.0); PROTEIN,URINE NEGATIVE (Neg)
[2020-02-04 18:10] LABS: URINE AMPHETAMINE SCREEN NEGATIVE (Neg); URINE BARBITUATE SCREEN NEGATIVE (Neg); URINE BENZODIAZEPINES SCREEN NEGATIVE (Neg); URINE CANNABINOID SCREEN NEGATIVE (Neg); URINE COCAINE SCREEN NEGATIVE (Neg); URINE METHADONE SCREEN NEGATIVE (Neg); URINE OPIATE SCREEN NEGATIVE (Neg); URINE PHENCYCLIDINE SCREEN NEGATIVE (Neg)
[2020-02-04 18:11] LABS: CLARITY,URINE Slightly Cloudy (Clear); UA COLLECTION TYPE CLN CATCH MIDSTREAM
[2020-02-04 18:14] LABS: BACTERIA,URINE FEW /HPF (Neg); SQUAMOUS EPITHELIAL CELL,UR MODERATE /LPF (FEW); WBC,URINE 0-4 /HPF (0-4)
[2020-02-04] MEDS ORDERED: ONDA4TAB6 PO (18:31)
[2020-02-04] MEDS ORDERED: ACET-812 PO (18:31)
[2020-02-04 18:49] VITALS: BP 112/70
== END 2020-02-04 18:50 | disposition home or self-care (01) ==
LOC: ER 16:04
DX: K42.9 Umbilical hernia without obstruction or gangrene (principal); K80.20 Calculus of gallbladder without cholecystitis without obstruction; Z87.448 Personal history of other diseases of urinary system; Z98.890 Other specified postprocedural states
CPT/HCPCS: 36415; 80053; 80305; 81001; 83690; 83880; 85025; 99284

== ENCOUNTER 2020-02-26 21:00 | Emergency (ER) | payer MEDICAID ==
[~2020-02-26] VITALS: Ht 167.6 cm; Wt 77.9 kg
[~2020-02-26 21:00] MED LIST changes: +ACET-812 PO
[2020-02-26 21:22] LABS: BASOPHILS # (AUTO) 0.1 X10'3 (0-0.2); BASOPHILS % (AUTO) 1.2 % (0-1); EOSINOPHILS # (AUTO) 0.3 X10'3 (0-0.9); EOSINOPHILS % (AUTO) 3.4 % (0-6); HEMATOCRIT 36.8 % (35.0-45.0); HEMOGLOBIN 12.3 g/dl (12.0-16.0); LYMPHOCYTES # (AUTO) 2.9 X10'3 (1.1-4.8); MEAN CORPUSCULAR HEMOGLOBIN 28.2 PG (27.0-31.0); MEAN CORPUSCULAR HGB CONC 33.5 g/dL (33.0-36.5); MEAN CORPUSCULAR VOLUME 84.2 FL (78-98); MEAN PLATELET VOLUME 8.1 FL (7.4-10.4); MONOCYTES # (AUTO) 0.8 X10'3 (0-0.9); MONOCYTES % (AUTO) 7.7 % (2-12); NEUTROPHILS # (AUTO) 6.1 X10'3 (1.8-7.7); NEUTROPHILS % (AUTO) 59.7 % (42-75); PLATELET COUNT 287 X10'3 (140-440); RED BLOOD COUNT 4.37 X10'6 (4.20-5.60); RED CELL DISTRIBUTION WIDTH 13.5 % (11.5-14.5); WHITE BLOOD COUNT 10.3 X10'3 (4.5-11.0)
[2020-02-26] MEDS ORDERED: normal saline 1000ML IV soln IVB ONE (21:30)
[2020-02-26] MEDS ORDERED: ondansetron/PF 4mg/2ml inj IV ONE (21:30)
[2020-02-26] MEDS ORDERED: morphine 10mg/ml inj. IV ONE (21:30)
[2020-02-26 21:39] LABS: ALANINE AMINOTRANSFERASE 42 U/L (12-78); ALBUMIN/GLOBULIN RATIO 1.1 (1.1-1.5); ALKALINE PHOSPHATASE 125 IU/L (46-116); ANION GAP 9 (8-16); ASPARTATE AMINO TRANSFERASE 26 U/L (10-37); BILIRUBIN,TOTAL 0.2 MG/DL (0.1-1.0); BLOOD UREA NITROGEN 14 MG/DL (7-18); BUN/CREATININE RATIO 17.5 (6.6-38.0); CALCIUM 9.3 MG/DL (8.5-10.1); CHLORIDE 105 MMOL/L (99-107); GLUCOSE 102 MG/DL (70-104); LIPASE 115 U/L (73-393); POTASSIUM 3.7 MMOL/L (3.5-5.1); SODIUM 140 MMOL/L (135-145); TOTAL CARBON DIOXIDE 25.8 MMOL/L (24-32); TOTAL PROTEIN 7.8 G/DL (6.4-8.2); eGFR 79 ML/MIN
[2020-02-26 21:45] LABS: CLARITY,URINE CLEAR (Clear); COLOR,URINE YELLOW (Yellow); GLUCOSE, URINE NEGATIVE (Neg); KETONES,URINE NEGATIVE (Neg); LEUKOCYTE ESTERASE ,URINE SMALL (Neg); NITRITES, URINE NEGATIVE (Neg); OCCULT BLOOD,URINE SMALL (Neg); PROTEIN,URINE NEGATIVE (Neg); URINE HCG NEGATIVE (NEG); UROBILINOGEN,URINE 0.2 E.U/dL (0.2-1.0)
[2020-02-26 21:51] LABS: UA COLLECTION TYPE CLN CATCH MIDSTREAM
[2020-02-26 21:57] LABS: RBC,URINE 0-2 /HPF (0-2)
[2020-02-26 21:58] LABS: BACTERIA,URINE 1+ /HPF (Neg); SQUAMOUS EPITHELIAL CELL,UR FEW /LPF (FEW)
[2020-02-26 23:10] VITALS: BP 128/82
== END 2020-02-26 23:12 | disposition home or self-care (01) ==
LOC: ER 21:01
DX: R10.31 Right lower quadrant pain (principal); R11.0 Nausea; Z87.440 Personal history of urinary (tract) infections; Z90.49 Acquired absence of other specified parts of digestive tract; Z98.890 Other specified postprocedural states; Z72.89 Other problems related to lifestyle; Z79.899 Other long term (current) drug therapy
CPT/HCPCS: 36415; 74176; 80053; 81001; 81025; 83690; 85025; 87088; 96361; 96374; 96375; 99284; J2270; J2405; J7030

== ENCOUNTER 2020-04-08 17:57 | Emergency (ER) | payer MEDICAID ==
[~2020-04-08] VITALS: Ht 167.6 cm; Wt 79.5 kg
[2020-04-08 18:54] LABS: BASOPHILS # (AUTO) 0.1 X10'3 (0-0.2); BASOPHILS % (AUTO) 0.7 % (0-1); EOSINOPHILS # (AUTO) 0.2 X10'3 (0-0.9); EOSINOPHILS % (AUTO) 1.8 % (0-6); HEMATOCRIT 37.6 % (35.0-45.0); HEMOGLOBIN 12.4 g/dl (12.0-16.0); LYMPHOCYTES # (AUTO) 2.1 X10'3 (1.1-4.8); LYMPHOCYTES % (AUTO) 22.8 % (21-51); MEAN CORPUSCULAR HEMOGLOBIN 27.8 PG (27.0-31.0); MEAN CORPUSCULAR HGB CONC 33.1 g/dL (33.0-36.5); MEAN CORPUSCULAR VOLUME 84.1 FL (78-98); MEAN PLATELET VOLUME 8.2 FL (7.4-10.4); MONOCYTES # (AUTO) 0.7 X10'3 (0-0.9); MONOCYTES % (AUTO) 8.2 % (2-12); NEUTROPHILS % (AUTO) 66.5 % (42-75); PLATELET COUNT 294 X10'3 (140-440); RED BLOOD COUNT 4.47 X10'6 (4.20-5.60); RED CELL DISTRIBUTION WIDTH 14.1 % (11.5-14.5)
[2020-04-08 19:10] LABS: ALANINE AMINOTRANSFERASE 26 U/L (12-78); ALKALINE PHOSPHATASE 127 IU/L (46-116); ANION GAP 8 (8-16); ASPARTATE AMINO TRANSFERASE 26 U/L (10-37); BILIRUBIN,TOTAL 0.2 MG/DL (0.1-1.0); BLOOD UREA NITROGEN 9 MG/DL (7-18); BUN/CREATININE RATIO 14.1 (6.6-38.0); CALCIUM 9.2 MG/DL (8.5-10.1); CHLORIDE 105 MMOL/L (99-107); CREATININE 0.64 MG/DL (0.40-0.90); GLUCOSE 110 MG/DL (70-104); POTASSIUM 3.6 MMOL/L (3.5-5.1); SODIUM 139 MMOL/L (135-145); TOTAL CARBON DIOXIDE 26.3 MMOL/L (24-32); eGFR > 90 ML/MIN
[2020-04-08] MEDS ORDERED: iohexol 350MG/ML 100ml bottle IV ONE (19:36)
[2020-04-08 19:43] VITALS: BP 137/79
== END 2020-04-08 21:23 | disposition home or self-care (01) ==
LOC: ER 17:57
DX: R06.02 Shortness of breath (principal); R05 Cough; R07.89 Other chest pain; Z90.49 Acquired absence of other specified parts of digestive tract; Z98.890 Other specified postprocedural states; Z72.89 Other problems related to lifestyle; Z79.899 Other long term (current) drug therapy; Z86.19 Personal history of other infectious and parasitic diseases
CPT/HCPCS: 36415; 71045; 71275; 80053; 83880; 84484; 85025; 93005; 99285; Q9967

== ENCOUNTER 2020-06-01 17:20 | Emergency (ER) | payer MEDICAID ==
[~2020-06-01] VITALS: Ht 167.6 cm; Wt 81.8 kg
[2020-06-01] MEDS ORDERED: orphenadrine citrate 60mg/2ml inj. IM ONE (17:55)
[2020-06-01] MEDS ORDERED: aspirin 325mg tablet PO ONE (17:55)
[2020-06-01] MEDS ORDERED: ketorolac tromethamine 15mg/ml inj. IM ONE (17:55)
[2020-06-01 18:17] LABS: BASOPHILS # (AUTO) 0.1 X10'3 (0-0.2); BASOPHILS % (AUTO) 0.7 % (0-1); EOSINOPHILS # (AUTO) 0.3 X10'3 (0-0.9); EOSINOPHILS % (AUTO) 3.1 % (0-6); HEMATOCRIT 34.9 % (35.0-45.0); HEMOGLOBIN 11.7 g/dl (12.0-16.0); LYMPHOCYTES # (AUTO) 2.4 X10'3 (1.1-4.8); LYMPHOCYTES % (AUTO) 26.8 % (21-51); MEAN CORPUSCULAR HEMOGLOBIN 27.7 PG (27.0-31.0); MEAN CORPUSCULAR HGB CONC 33.5 g/dL (33.0-36.5); MEAN CORPUSCULAR VOLUME 82.8 FL (78-98); MEAN PLATELET VOLUME 8.1 FL (7.4-10.4); MONOCYTES # (AUTO) 0.6 X10'3 (0-0.9); MONOCYTES % (AUTO) 7.3 % (2-12); NEUTROPHILS # (AUTO) 5.5 X10'3 (1.8-7.7); NEUTROPHILS % (AUTO) 62.1 % (42-75); PLATELET COUNT 318 X10'3 (140-440); RED BLOOD COUNT 4.21 X10'6 (4.20-5.60); RED CELL DISTRIBUTION WIDTH 13.7 % (11.5-14.5); WHITE BLOOD COUNT 8.8 X10'3 (4.5-11.0)
[2020-06-01 18:21] LABS: D-DIMER 0.71 MG/L FEU (0-0.50)
[2020-06-01 18:24] LABS: ALANINE AMINOTRANSFERASE 21 U/L (12-78); ALBUMIN 3.6 G/DL (3.4-5.0); ALKALINE PHOSPHATASE 114 IU/L (46-116); ANION GAP 8 (8-16); ASPARTATE AMINO TRANSFERASE 15 U/L (10-37); BILIRUBIN,TOTAL 0.1 MG/DL (0.1-1.0); BLOOD UREA NITROGEN 12 MG/DL (7-18); BUN/CREATININE RATIO 17.9 (6.6-38.0); CALCIUM 8.8 MG/DL (8.5-10.1); CHLORIDE 106 MMOL/L (99-107); CREATININE 0.67 MG/DL (0.40-0.90); GLUCOSE 117 MG/DL (70-104); POTASSIUM 3.8 MMOL/L (3.5-5.1); SODIUM 139 MMOL/L (135-145); TOTAL CARBON DIOXIDE 24.9 MMOL/L (24-32); TOTAL PROTEIN 7.3 G/DL (6.4-8.2); eGFR > 90 ML/MIN
[2020-06-01] MEDS ORDERED: iohexol 350MG/ML 100ml bottle IV ONE (18:33)
[2020-06-01] MEDS ORDERED: ORPH100T2 PO (19:15)
[2020-06-01] MEDS ORDERED: IBUP-1984 PO (19:15)
[2020-06-01 19:35] VITALS: BP 125/67
== END 2020-06-01 19:39 | disposition home or self-care (01) ==
LOC: ER 17:21
DX: S29.012A Strain of muscle and tendon of back wall of thorax, initial encounter (principal); M54.89 Other dorsalgia; R07.89 Other chest pain; R06.02 Shortness of breath; Z87.440 Personal history of urinary (tract) infections; Z90.49 Acquired absence of other specified parts of digestive tract; Z98.890 Other specified postprocedural states; Z72.89 Other problems related to lifestyle; Z79.899 Other long term (current) drug therapy; X58.XXXA Exposure to other specified factors, initial encounter; Y93.89 Activity, other specified; Y92.89 Other specified places as the place of occurrence of the external cause; Y99.8 Other external cause status
CPT/HCPCS: 36415; 71045; 71275; 80053; 84484; 85025; 85379; 93005; 96372; 99285; J1885; J2360; Q9967

== ENCOUNTER 2020-08-07 15:22 | Emergency (ER) | payer MEDICAID ==
[~2020-08-07] VITALS: Ht 167.6 cm; Wt 82.0 kg
[~2020-08-07 15:22] MED LIST changes: +ORPH100T2 PO
[2020-08-07 16:40] LABS: CLARITY,URINE CLOUDY (Clear); COLOR,URINE RED (Yellow); GLUCOSE, URINE NEGATIVE (Neg); KETONES,URINE 15 mg/dl (Neg); LEUKOCYTE ESTERASE ,URINE SMALL (Neg); NITRITES, URINE NEGATIVE (Neg); OCCULT BLOOD,URINE LARGE (Neg); PH,URINE 5.5 (4.8-8.0); PROTEIN,URINE NEGATIVE (Neg); UROBILINOGEN,URINE 0.2 E.U/dL (0.2-1.0)
[2020-08-07 16:45] LABS: UA COLLECTION TYPE CLN CATCH MIDSTREAM
[2020-08-07 16:46] LABS: RBC,URINE TNTC /HPF (0-2)
[2020-08-07 16:47] LABS: BACTERIA,URINE FEW /HPF (Neg); SQUAMOUS EPITHELIAL CELL,UR MODERATE /LPF (FEW)
[2020-08-07 17:36] LABS: BASOPHILS # (AUTO) 0.1 X10'3 (0-0.2); BASOPHILS % (AUTO) 0.7 % (0-1); EOSINOPHILS # (AUTO) 0.1 X10'3 (0-0.9); EOSINOPHILS % (AUTO) 1.5 % (0-6); HEMATOCRIT 35.7 % (35.0-45.0); HEMOGLOBIN 11.8 g/dl (12.0-16.0); LYMPHOCYTES # (AUTO) 1.7 X10'3 (1.1-4.8); LYMPHOCYTES % (AUTO) 21.3 % (21-51); MEAN CORPUSCULAR HEMOGLOBIN 28.2 PG (27.0-31.0); MEAN CORPUSCULAR HGB CONC 32.9 g/dL (33.0-36.5); MEAN CORPUSCULAR VOLUME 85.5 FL (78-98); MEAN PLATELET VOLUME 7.9 FL (7.4-10.4); MONOCYTES # (AUTO) 0.5 X10'3 (0-0.9); MONOCYTES % (AUTO) 6.5 % (2-12); NEUTROPHILS # (AUTO) 5.7 X10'3 (1.8-7.7); PLATELET COUNT 339 X10'3 (140-440); RED BLOOD COUNT 4.17 X10'6 (4.20-5.60); RED CELL DISTRIBUTION WIDTH 13.3 % (11.5-14.5); WHITE BLOOD COUNT 8.2 X10'3 (4.5-11.0)
[2020-08-07 17:42] LABS: ALBUMIN 3.7 G/DL (3.4-5.0); ANION GAP 11 (8-16); BLOOD UREA NITROGEN 10 MG/DL (7-18); BUN/CREATININE RATIO 16.7 (6.6-38.0); CALCIUM 8.5 MG/DL (8.5-10.1); CHLORIDE 106 MMOL/L (99-107); GLUCOSE 87 MG/DL (70-104); POTASSIUM 3.9 MMOL/L (3.5-5.1); SODIUM 142 MMOL/L (135-145); TOTAL CARBON DIOXIDE 24.7 MMOL/L (24-32); eGFR > 90 ML/MIN
[2020-08-07] MEDS ORDERED: NITR100C PO (18:28)
[2020-08-07 18:36] VITALS: BP 106/69
== END 2020-08-07 18:34 | disposition home or self-care (01) ==
LOC: ER 15:23
DX: N39.0 Urinary tract infection, site not specified (principal); N93.9 Abnormal uterine and vaginal bleeding, unspecified; R30.0 Dysuria; R53.1 Weakness; R42 Dizziness and giddiness; R31.9 Hematuria, unspecified; Z87.440 Personal history of urinary (tract) infections; Z90.49 Acquired absence of other specified parts of digestive tract; Z98.890 Other specified postprocedural states; Z72.89 Other problems related to lifestyle; Z79.899 Other long term (current) drug therapy
CPT/HCPCS: 36415; 80048; 81001; 85025; 87077; 87088; 87186; 99283

== ENCOUNTER 2021-01-21 15:27 | Emergency (ER) | payer MEDICAID ==
[~2021-01-21] VITALS: Ht 167.6 cm; Wt 77.5 kg
[~2021-01-21 15:27] MED LIST changes: +NITR100C PO
[2021-01-21 15:52] VITALS: BP 127/70
[2021-01-21 16:49] LABS: URINE HCG NEGATIVE (NEG)
[2021-01-21 17:04] LABS: CLARITY,URINE SLIGHTLY CLOUDY (Clear); COLOR,URINE YELLOW (Yellow); UA COLLECTION TYPE CLN CATCH MIDSTREAM
[2021-01-21 17:05] LABS: GLUCOSE, URINE NEGATIVE (Neg); KETONES,URINE NEGATIVE (Neg); LEUKOCYTE ESTERASE ,URINE SMALL (Neg); NITRITES, URINE NEGATIVE (Neg); OCCULT BLOOD,URINE SMALL (Neg); PROTEIN,URINE TRACE mg/dl (Neg); UROBILINOGEN,URINE 0.2 E.U/dL (0.2-1.0)
[2021-01-21 17:06] LABS: WBC,URINE 30-50 /HPF (0-4)
[2021-01-21 17:07] LABS: BACTERIA,URINE FEW /HPF (Neg); MUCUS STRANDS FEW /LPF (Neg); SQUAMOUS EPITHELIAL CELL,UR FEW /LPF (FEW)
[2021-01-21] MEDS ORDERED: SULF1TAB49 PO (17:23)
[2021-01-21] MEDS ORDERED: PHEN-786 PO (17:23)
== END 2021-01-21 17:45 | disposition home or self-care (01) ==
LOC: ER 15:28
DX: N39.0 Urinary tract infection, site not specified (principal); R10.84 Generalized abdominal pain; R30.0 Dysuria; R11.0 Nausea; Z87.440 Personal history of urinary (tract) infections; Z90.49 Acquired absence of other specified parts of digestive tract; Z98.890 Other specified postprocedural states; Z72.89 Other problems related to lifestyle; Z79.2 Long term (current) use of antibiotics; Z79.899 Other long term (current) drug therapy
CPT/HCPCS: 81001; 81025; 87077; 87088; 87186; 99283

== ENCOUNTER 2021-02-08 13:19 | Emergency (ER) | payer MEDICAID ==
[~2021-02-08] VITALS: Ht 167.6 cm; Wt 77.3 kg
[~2021-02-08 13:19] MED LIST changes: +PHEN-786 PO
[2021-02-08 13:25] VITALS: BP 106/69
[2021-02-08] MEDS ORDERED: DEXA6TAB6 PO (13:36)
[2021-02-08] MEDS ORDERED: CYCL5TAB14 PO (13:36)
[2021-02-08] MEDS ORDERED: dexamethasone sod phosphate 10mg/ml inj IM STA (13:52)
[2021-02-08] MEDS ORDERED: ketorolac trometh inj. 60 MG/2 ML VIAL IM ONE (13:55)
== END 2021-02-08 16:08 | disposition home or self-care (01) ==
LOC: ER 13:20
DX: M54.9 Dorsalgia, unspecified (principal); M79.662 Pain in left lower leg; Z90.49 Acquired absence of other specified parts of digestive tract; Z72.89 Other problems related to lifestyle; Z98.890 Other specified postprocedural states; Z87.442 Personal history of urinary calculi; Z79.899 Other long term (current) drug therapy
CPT/HCPCS: 96372; 99284; J1100; J1885

== ENCOUNTER 2021-11-10 19:56 | Emergency (ER) | payer MEDICAID ==
[~2021-11-10] VITALS: Ht 167.6 cm; Wt 78.0 kg
[~2021-11-10 19:56] MED LIST changes: +CYCL5TAB14 PO; +DEXA6TAB6 PO
[2021-11-10 20:00] VITALS: BP 116/83
[2021-11-10 20:43] LABS: URINE HCG NEGATIVE (NEG)
[2021-11-10 20:47] LABS: CLARITY,URINE SLIGHTLY CLOUDY (Clear); COLOR,URINE YELLOW (Yellow); GLUCOSE, URINE NEGATIVE (Neg); KETONES,URINE NEGATIVE (Neg); LEUKOCYTE ESTERASE ,URINE MODERATE (Neg); NITRITES, URINE NEGATIVE (Neg); OCCULT BLOOD,URINE MODERATE (Neg); PROTEIN,URINE NEGATIVE (Neg)
[2021-11-10 20:57] LABS: UA COLLECTION TYPE CLN CATCH MIDSTREAM
[2021-11-10 20:58] LABS: BACTERIA,URINE 1+ /HPF (Neg); SQUAMOUS EPITHELIAL CELL,UR FEW /LPF (FEW); WBC CLUMPS,URINE FEW /HPF (NEGATIVE); WBC,URINE TNTC /HPF (0-4)
[2021-11-10 20:59] LABS: MUCUS STRANDS FEW /LPF (Neg)
[2021-11-10] MEDS ORDERED: CEPH500C2 PO (22:42)
[2021-11-10] MEDS ORDERED: cephalexin 500mg capsule PO ONE (22:45)
== END 2021-11-10 23:15 | disposition home or self-care (01) ==
LOC: ER 19:56
DX: N39.0 Urinary tract infection, site not specified (principal); Z87.19 Personal history of other diseases of the digestive system; Z90.49 Acquired absence of other specified parts of digestive tract; Z79.899 Other long term (current) drug therapy; Z79.2 Long term (current) use of antibiotics
CPT/HCPCS: 81001; 81025; 87077; 87088; 87186; 99283

== ENCOUNTER 2022-12-13 16:40 | Emergency (ER) | payer MEDICAID ==
[~2022-12-13] VITALS: Ht 172.7 cm; Wt 90.0 kg
[~2022-12-13 16:40] MED LIST changes: -ORPH100T2 PO; +ORPH100T4 PO
[2022-12-13 16:45] VITALS: BP 133/93; PULSE 108; RESP 18; TEMP 97.7; O2SAT 97
[2022-12-13] MEDS ORDERED: ketorolac trometh. 30mg/ml inj. IM ONE (18:10)
== END 2022-12-13 18:51 | disposition home or self-care (01) ==
LOC: ER 16:40
DX: S90.122A Contusion of left lesser toe(s) without damage to nail, initial encounter (principal); Z79.899 Other long term (current) drug therapy
CPT/HCPCS: 73660; 96372; 99283; J1885; L4360

== ENCOUNTER 2023-03-04 19:21 | Emergency (ER) | payer MEDICAID ==
[~2023-03-04] VITALS: Ht 167.6 cm; Wt 81.7 kg
[2023-03-04 20:39] LABS: BASOPHILS # (AUTO) 0.1 X10'3 (0-0.2); BASOPHILS % (AUTO) 0.6 % (0-1); EOSINOPHILS # (AUTO) 0.5 X10'3 (0-0.9); EOSINOPHILS % (AUTO) 4.1 % (0-6); HEMATOCRIT 38.6 % (35.0-45.0); HEMOGLOBIN 12.6 g/dl (12.0-16.0); LYMPHOCYTES # (AUTO) 2.3 X10'3 (1.1-4.8); LYMPHOCYTES % (AUTO) 20.4 % (21-51); MEAN CORPUSCULAR HEMOGLOBIN 27.5 PG (27.0-31.0); MEAN CORPUSCULAR HGB CONC 32.7 g/dL (33.0-36.5); MEAN PLATELET VOLUME 8.6 FL (7.4-10.4); MONOCYTES % (AUTO) 8.9 % (2-12); NEUTROPHILS # (AUTO) 7.4 X10'3 (1.8-7.7); PLATELET COUNT 307 X10'3 (140-440); RED BLOOD COUNT 4.59 X10'6 (4.20-5.60); RED CELL DISTRIBUTION WIDTH 13.4 % (11.5-14.5); WHITE BLOOD COUNT 11.2 X10'3 (4.5-11.0)
[2023-03-04 20:57] LABS: ALANINE AMINOTRANSFERASE 49 U/L (12-78); ALBUMIN 3.7 G/DL (3.4-5.0); ALKALINE PHOSPHATASE 131 IU/L (46-116); ANION GAP 11 (8-16); ASPARTATE AMINO TRANSFERASE 34 U/L (10-37); BILIRUBIN,TOTAL 0.2 MG/DL (0.1-1.0); BLOOD UREA NITROGEN 10 MG/DL (7-18); CALCIUM 8.9 MG/DL (8.5-10.1); CHLORIDE 104 MMOL/L (99-107); CREATININE 0.77 MG/DL (0.40-0.90); GLUCOSE 111 MG/DL (70-104); POTASSIUM 3.1 MMOL/L (3.5-5.1); SODIUM 138 MMOL/L (135-145); TOTAL CARBON DIOXIDE 23.2 MMOL/L (24-32); TOTAL PROTEIN 7.5 G/DL (6.4-8.2); eCRCL 88 ML/MIN; eGFR 82 ML/MIN
[2023-03-04 21:04] LABS: PRO BRAIN NATRIURETIC PEPTIDE < 30 PG/ML (0-125)
[2023-03-04] MEDS ORDERED: potassium chloride 10mEq ER tablet PO STA (21:28)
[2023-03-04] MEDS ORDERED: BENZ-38 PO (21:32)
[2023-03-04 22:03] VITALS: BP 100/64; PULSE 85; RESP 18; TEMP 98.2; O2SAT 95
== END 2023-03-04 22:09 | disposition home or self-care (01) ==
LOC: ER 19:23
DX: J40 Bronchitis, not specified as acute or chronic (principal); Z20.822 Contact with and (suspected) exposure to COVID-19
CPT/HCPCS: 36415; 71045; 80053; 83880; 84484; 85025; 87811; 93005; 99285

== ENCOUNTER 2024-07-19 15:35 | Emergency (ER) | payer MEDICAID ==
[~2024-07-19] VITALS: Ht 167.6 cm; Wt 74.4 kg
[~2024-07-19 15:35] MED LIST changes: +ONDA-243 PO; -ONDA4TAB12 PO
[2024-07-19] MEDS ORDERED: HYDR-3965 PO (16:16)
[2024-07-19] MEDS ORDERED: CLIN300C3 PO (16:16)
[2024-07-19] MEDS: clindamycin 150mg capsule PO ONE (16:17)
[2024-07-19 16:40] VITALS: BP 120/77; PULSE 71; RESP 16; TEMP 98.5; O2SAT 97
== END 2024-07-19 16:41 | disposition home or self-care (01) ==
LOC: ER 15:35
DX: K04.7 Periapical abscess without sinus (principal); K02.9 Dental caries, unspecified; Z90.49 Acquired absence of other specified parts of digestive tract; Z98.890 Other specified postprocedural states; Z79.899 Other long term (current) drug therapy; Z72.89 Other problems related to lifestyle
CPT/HCPCS: 99283